=== PATIENT | female | born 1995 | race Caucasian/White ===

== ENCOUNTER 2017-10-26 02:21 | Emergency (ER) | END 2017-10-26 05:47 | disposition home or self-care (01) ==

== ENCOUNTER 2019-02-21 13:11 | Inpatient (IN) | payer OTHER ==
[~2019-02-21] VITALS: Ht 162.6 cm; Wt 63.0 kg
[2019-02-21] MEDS ORDERED: SOD CHLORIDE 0.9% 500 ML IV STA (13:50)
[2019-02-21] MEDS ORDERED: ONDANSETRON 4 MG INJ IV STA (13:50)
[2019-02-21] MEDS ORDERED: morphine 4 MG/ML VIAL IV STA (13:50)
--- NOTE | 2019-02-21 16:17 | ERD ---
ER Documentation Chief Complaint Chief Complaint RLQ ABD PAIN SINCE YESTERDAY GETTING WORSE TODAY. N/V NO DIARRHEA HPI 23-year-old female patient with no significant past medical history presents to ED complaining of right lower quadrant abdominal pain that started yesterday at 8 PM. Describes the pain as sharp and rates it an 8 out of 10. States that she has had a few episodes of nonbilious nonbloody vomiting. Reports that she has normal daily bowel movements. States that this feels different from her menstrual cramps. Denies any pain, shortness of breath, wheezing, diarrhea, dysuria, urgency, frequency. ROS All systems reviewed and are negative except as per history of present illness. Allergies Allergies: Coded Allergies: No Known Drug Allergies (Verified Allergy, Unknown, 02/21/19) PMhx/Soc History of Surgery: No Hx Neurological Disorder: No Hx Respiratory Disorders: No Hx Cardiac Disorders: No Hx Psychiatric Problems: No Hx Miscellaneous Medical Probl: Yes (Abdominal pain) Hx Alcohol Use: Yes (OCCASIONAL WINE, LIQUOR) Hx Substance Use: No Hx Tobacco Use: No FmHx Family History: No diabetes, No coronary disease Physical Exam Vitals Vital Signs Date Temp Pulse Resp B/P (MAP) Pulse Ox O2 O2 Flow FiO2 Time Delivery Rate 02/21/19 98.9 73 18 101/59 99 13:18 (73) Physical Exam Const: [id number], well-nourished. In no acute distress. Head: Atraumatic, normocephalic Eyes: Normal Conjunctiva without injection. No purulent discharge. ENT: Normal external ear, nose. Moist oropharynx without tonsillar exudates. Non-erythematous pharynx. Uvula midline. No drooling. No trismus. Neck: No cervical midline tenderness. Full range of motion. No meningismus. No cervical lymphadenopathy. No JVD. Resp: Clear to auscultation bilaterally. No wheezing, rhonchi, rales, or crackles. No accessory muscle use. No retractions. Cardio: Regular rate and rhythm. No murmurs, rubs or gallops. Abd: Soft, right lower quadrant tenderness, non distended. Normal bowel sounds. No palpable masses. Rebound tenderness. No guarding. Positive McBurney's point. Negative psoas sign. Negative obturator sign. Skin: No petechiae or rashes Back: No midline tenderness. No CVA tenderness. Ext: No cyanosis, or edema. Neur: Awake and alert. Normal gait. Normal coordination. Psych: Normal Mood and Affect Result Diagram: 02/21/19 1411 02/21/19 1411 Results 24 hrs Laboratory Tests Test 02/21/19 14:11 White Blood Count 8.8 10^3/ul Red Blood Count 4.21 10^6/ul Hemoglobin 13.1 g/dl Hematocrit 38.9 % Mean Corpuscular Volume 92.4 fl Mean Corpuscular Hemoglobin 31.1 pg Mean Corpuscular Hemoglobin Concent 33.7 g/dl Red Cell Distribution Width 12.3 % Platelet Count 211 10^3/UL Mean Platelet Volume 10.1 fl Immature Granulocytes % 0.300 % Neutrophils % 66.7 % Lymphocytes % 20.3 % Monocytes % 11.9 % Eosinophils % 0.6 % Basophils % 0.2 % Nucleated Red Blood Cells % 0.0 /100WBC Immature Granulocytes # 0.030 10^3/ul Neutrophils # 5.9 10^3/ul Lymphocytes # 1.8 10^3/ul Monocytes # 1.0 10^3/ul Eosinophils # 0.1 10^3/ul Basophils # 0.0 10^3/ul Nucleated Red Blood Cells # 0.0 10^3/ul Urine Color [place] Urine Clarity SLIGHTLY CLOUDY Urine pH 9.0 Urine Specific [place] 1.026 Urine Ketones NEGATIVE mg/dL Urine Nitrite NEGATIVE mg/dL Urine Bilirubin NEGATIVE mg/dL Urine Urobilinogen NEGATIVE mg/dL Urine Leukocyte Esterase TRACE [place]/ul Urine Microscopic RBC 82 /HPF Urine Microscopic WBC 24 /HPF Urine Squamous Epithelial Cells FEW /HPF Urine Bacteria FEW /HPF Urine Mucus MODERATE /HPF Urine Hemoglobin 2+ mg/dL Urine Glucose NEGATIVE mg/dL Urine Total Protein 2+ mg/dl Sodium Level 140 mmol/L Potassium Level 3.6 mmol/L Chloride Level 104 mmol/L Carbon Dioxide Level 28 mmol/L Anion Gap 8 Blood Urea Nitrogen 10 mg/dl Creatinine 0.57 mg/dl Est Glomerular Filtrat Rate mL/min > 60 mL/min Glucose Level 83 mg/dl Calcium Level 9.2 mg/dl Total Bilirubin 0.9 mg/dl Direct Bilirubin 0.00 mg/dl Indirect Bilirubin 0.9 mg/dl Aspartate Amino Transf (AST/SGOT) 31 IU/L Alanine Aminotransferase (ALT/SGPT) 25 IU/L Alkaline Phosphatase 73 IU/L Total Protein 7.0 g/dl Albumin 4.2 g/dl Globulin 2.80 g/dl Albumin/Globulin Ratio 1.50 Lipase 39 U/L Serum HCG, Qualitative NEGATIVE Current Medications Medications Dose Sig/Leanne Start Time Status Last (Trade) Ordered Route PRN Stop Time Admin Dose Reason Admin Sodium 500 ml @ Q1H STAT 02/21/19 DC 02/21/19 Chloride 500 mls/hr IV 13:50 14:26 02/21/19 14:49 Morphine 4 mg ONCE STAT 02/21/19 DC 02/21/19 Sulfate IV 13:50 14:26 (morphine) 02/21/19 13:52 Ondansetron 4 mg ONCE STAT 02/21/19 DC 02/21/19 HCl (Zofran IV 13:50 14:26 Inj) 02/21/19 13:52 Piperacillin 100 ml @ ONCE STAT 02/21/19 02/21/19 Sod/ 200 mls/hr IVPB 17:30 17:42 Tazobactam 02/21/19 17:59 Sod Procedures/MDM 23-year-old female patient with no significant past medical history presents ED complaining of right lower quadrant abdominal pain since yesterday. Patient is afebrile and nontoxic-appearing. Patient is in distress due to her right lower quadrant pain. Patient was further worked up with CBC, CMP, lipase, UA, HCG , CT of the abdomen and pelvis without contrast. Patient's pain and symptoms have improved after treatment with 4 mg IV morphine, 4 mg IV Zofran, 500 mL of normal saline. CBC: No leukocytosis. No e/o of systemic infection. No e/o anemia. CMP: No e/o severe acidosis, alkalosis, renal failure, diabetic ketoacidosis, liver disease Lipase within normal limits. Urine: Trace leukocyte esterase, no nitrites, 2+.. Patient reports that she just started her menstruation. Pending hCG . Pending CT of the abdomen and pelvis without contrast, this has been signed out to my supervising physician, Dr. Chip vizcaino for patient. Please note that this patient has been seen and evaluated by the nurse practitioner. I went to the bedside to evaluate the patient. The patient had significant tenderness in the right lower quadrant, with voluntary guarding specifically over McBurney's point. The patient was very pleasant but had artery received analgesic medication and stated her pain was still 8 out of 10 in intensity. Her last oral intake was over 24 hours prior to arrival. I evaluated the CT scan which indicated patient had appendicitis. She was given IV Zosyn. I have spoken with the surgeon Dr. Andrew who kindly stated he will evaluate the patient. The patient will be admitted to the panel physician will go to the medical surgical floor in serious condition. Departure Diagnosis: Primary Impression: Appendicitis Appendicitis type: acute appendicitis Acute appendicitis type: unspecified acute appendicitis type Qualified Codes: K35.80 - Unspecified acute appendicitis Condition: Serious CHARLES PATHAK PA-C Feb 21, 2019 16:14 LATHA MUNIZ MD Feb 21, 2019 17:46
[2019-02-21] MEDS ORDERED: PIPER-TAZO 3.375 GM IV (PMX) 100 ML IVPB STA (17:30)
[2019-02-21] MEDS ORDERED: ONDANSETRON 4 MG INJ IV PRN ×2 (18:30→19:00)
--- NOTE | 2019-02-21 18:59 | HP ---
Date/Time of Note Date/Time of Note DATE: 02/21/19 TIME: 18:57 Assessment/Plan VTE Prophylaxis Pharmacological prophylaxis: NA/contraindicated Pharm contraindication: low risk/ambulating Lines/Catheters IV Catheter Type (from Nrsg): Saline Lock Assessment/Plan Hospital Course 1. Acute appendicitis Surgery consultation with Dr. Andrew obtained Zosyn IV Pain control 2. UTI Zosyn Prophylaxis: Ambulation Result Diagram: 02/21/19 1411 02/21/19 1411 Results 24hrs Laboratory Tests Test 02/21/19 14:11 White Blood Count 8.8 Red Blood Count 4.21 Hemoglobin 13.1 Hematocrit 38.9 Mean Corpuscular Volume 92.4 Mean Corpuscular Hemoglobin 31.1 Mean Corpuscular Hemoglobin Concent 33.7 Red Cell Distribution Width 12.3 Platelet Count 211 Mean Platelet Volume 10.1 Immature Granulocytes % 0.300 Neutrophils % 66.7 Lymphocytes % 20.3 Monocytes % 11.9 H Eosinophils % 0.6 Basophils % 0.2 Nucleated Red Blood Cells % 0.0 Immature Granulocytes # 0.030 Neutrophils # 5.9 Lymphocytes # 1.8 Monocytes # 1.0 H Eosinophils # 0.1 Basophils # 0.0 Nucleated Red Blood Cells # 0.0 Urine Color [place] Urine Clarity SLIGHTLY CLOUDY A Urine pH 9.0 Urine Specific [place] 1.026 Urine Ketones NEGATIVE Urine Nitrite NEGATIVE Urine Bilirubin NEGATIVE Urine Urobilinogen NEGATIVE Urine Leukocyte Esterase TRACE A Urine Microscopic RBC 82 H Urine Microscopic WBC 24 H Urine Squamous Epithelial Cells FEW Urine Bacteria FEW A Urine Mucus MODERATE Urine Hemoglobin 2+ H Urine Glucose NEGATIVE Urine Total Protein 2+ H Sodium Level 140 Potassium Level 3.6 Chloride Level 104 Carbon Dioxide Level 28 Anion Gap 8 Blood Urea Nitrogen 10 Creatinine 0.57 Est Glomerular Filtrat Rate mL/min > 60 Glucose Level 83 Calcium Level 9.2 Total Bilirubin 0.9 Direct Bilirubin 0.00 Indirect Bilirubin 0.9 Aspartate Amino Transf (AST/SGOT) 31 Alanine Aminotransferase (ALT/SGPT) 25 Alkaline Phosphatase 73 Total Protein 7.0 Albumin 4.2 Globulin 2.80 Albumin/Globulin Ratio 1.50 Lipase 39 Serum HCG, Qualitative NEGATIVE HPI/ROS Admit Date/Time Admit Date/Time February 21, 2019 Hx of Present Illness Patient is a 23-year-old female with no medical history presents with right lower quadrant abdominal pain that began last night. Pain was associated with nausea vomiting, pain persisted into this morning hence presented to the ER where CT abdomen showed early appendicitis. Patient denies any fever chills or any prior such symptoms. Patient has no other complaints this time. Of note pain has remained in the right lower quadrant today. ROS Constitutional: no complaints, improved Eyes: no complaints ENT: no complaints Respiratory: no complaints Cardiovascular: no complaints Gastrointestinal: pain, nausea, vomiting Genitourinary: no complaints Musculoskeletal: no complaints Skin: no complaints Neurologic: no complaints Endocrine: no complaints Lymphatic: no complaints Psychological: no complaints, nl mood/affect Immunologic: no complaints PMH/Family/Social Past Medical History Medical History: no pertinent history Medications Current Medications Ondansetron HCl (Zofran Inj) 4 mg BRIDGE ORDER PRN IV NAUSEA/VOMITING; Start 02/21/19 at 18:30; Stop 02/22/19 at 18:29 Coded Allergies: No Known Drug Allergies (Verified Allergy, Unknown, 02/21/19) Past Surgical History Past Surgical Hx: no surgical history Family History Significant Family History: no pertinent family hx Social History Alcohol Use: rarely Smoking Status: Never smoker Drug Use: none Exam/Review of Systems Vital Signs Vitals Vital Signs Date Temp Pulse Resp B/P (MAP) Pulse Ox O2 O2 Flow FiO2 Time Delivery Rate 02/21/19 98.1 68 18 108/62 99 17:54 (77) Exam Constitutional: alert, oriented Respiratory: clear to auscultation Cardiovascular: regular rate and rhythm Gastrointestinal: soft, tender Musculoskeletal: nl extremities to inspection MELY CHERRY Feb 21, 2019 18:59
[2019-02-21] MEDS ORDERED: DOCUSATE SODIUM 100 MG CAP PO PRN (19:00)
[2019-02-21] MEDS ORDERED: HYDROCODONE/APAP (5/325) TAB PO PRN (19:00)
[2019-02-21] MEDS ORDERED: ZOLPIDEM 5 MG TAB PO PRN (19:00)
[2019-02-21] MEDS ORDERED: NACL 0.9% 3 ML SYG IV SCH (19:00)
[2019-02-21] MEDS ORDERED: ACETAMINOPHEN 325 MG TAB PO PRN (19:00)
[2019-02-21] MEDS: morphine 2 MG INJ IV PRN (20:20)
[2019-02-21 20:30] VITALS: Ht 162.6 cm; Wt 63.0 kg
[2019-02-21 20:50] VITALS: BP 103/64; PULSE 63; RESP 18
[2019-02-21] MEDS: NS + KCL 20 MEQ 1,000 ML IV SCH (21:24)
[2019-02-21] MEDS: PIPER-TAZO 3.375 GM IV (PMX) 100 ML IVPB SCH (23:57)
[2019-02-22] VITALS (30 sets, daily range): BP systolic 75–112; BP diastolic 48–69; PULSE 59–88; RESP 12–30
[2019-02-22] MEDS: PIPER-TAZO 3.375 GM IV (PMX) 100 ML IVPB SCH (05:14)
[2019-02-22] MEDS: NS + KCL 20 MEQ 1,000 ML IV SCH ×2 (06:00→12:56)
--- NOTE | 2019-02-22 09:37 | PREAC ---
Date/Time of Note Date/Time of Note DATE: 02/22/19 TIME: 09:33 Anesthesia Eval and Record Evaluation Time Pre-Procedure Interview DATE: 02/22/19 TIME: 09:33 Age 23 Sex female NPO: 8 hrs Preoperative diagnosis Acute Appendicitis Planned procedure Laparoscopic Appendectomy Past Medical History Past Medical History: Includes Heme: Anemia Surgery & Anesthesia Issues No known issue Meds Anticoagulation: No Beta Hailey within 24 hr: No Reason Beta Hailey not given: Pt. not on B-Hailey Current Medications Ondansetron HCl (Zofran Inj) 4 mg BRIDGE ORDER PRN IV NAUSEA/VOMITING; Start 02/21/19 at 18:30; Stop 02/22/19 at 18:29 Potassium Chloride/Sodium Chloride 1,000 ml @ 100 mls/hr Q10H IV Last administered on 02/21/19at 21:24; Admin Dose 100 MLS/HR; Start 02/21/19 at 20:00 IV Flush (NS 3 ml) 3 ml PER PROTOCOL IV ; Start 02/21/19 at 19:00 Ondansetron HCl (Zofran Inj) 4 mg Q6H PRN IV NAUSEA/VOMITING; Start 02/21/19 at 19:00 Acetaminophen (Tylenol Tab) 650 mg Q6H PRN PO .PAIN 1-3 OR TEMP; Start 02/21/19 at 19:00 Acetaminophen/ Hydrocodone Bitart ([place] (5/325)) 1 tab Q6H PRN PO .MOD PAIN 4- 6; Start 02/21/19 at 19:00 Morphine Sulfate (morphine) 2 mg Q4H PRN IV .SEVERE PAIN 7-10 Last administered on 02/21/19at 20:20; Admin Dose 2 MG; Start 02/21/19 at 19:00 Docusate Sodium (Colace) 100 mg Q12H PRN PO .CONSTIPATION; Start 02/21/19 at 19:00 Zolpidem Tartrate (Ambien) 5 mg QHS PRN PO .INSOMNIA; Start 02/21/19 at 19:00 Piperacillin Sod/ Tazobactam Sod 100 ml @ 200 mls/hr Q6 IVPB Last administered on 02/22/19at 05:14; Admin Dose 200 MLS/HR; Start 02/22/19 at 00:00 Meds reviewed: Yes Allergies Coded Allergies: No Known Drug Allergies (Verified Allergy, Unknown, 02/21/19) Allergies Reviewed: Yes Labs/Studies Labs Reviewed: Reviewed by anesthesiologist Result Diagram: 02/22/19 0450 02/22/19 0450 Laboratory Tests 02/22/19 04:50 test: Negative Studies: ECG (n/a), CXR (n/a) Pre-procedure Exam Last vitals Vital Signs Date Temp Pulse Resp B/P (MAP) Pulse Ox O2 O2 Flow FiO2 Time Delivery Rate 02/22/19 98.0 59 20 98/56 (70) 95 07:44 02/22/19 Room Air 02:00 Airway: Adequate mouth opening, Adequate thyromental dist Mallampati: Mallampati II Teeth: Normal Lung: Normal Heart: Normal ASA Physical Status ASA physical status: 1 Emergency: E Planned Anesthetic General/MAC: ETT Nerve block: TAP (bilateral) Planned Pain Management Single shot nerve block, Parenteral pain med Pre-operative Attestations Prior to commencing anesthesia and surgery, the patient was re-evaluated, there was verification of: *The patient's identity *The results of appropriate recent lab work and preoperative vital signs *The above evaluation not changing prior to induction *Anesthetic plan, risk benefits, alternative and complications discussed with patient/family; questions answered; patient/family understands, accepts and wishes to proceed. JOANNA BARTHOLOMEW MD Feb 22, 2019 09:37
[2019-02-22] MEDS ORDERED: ROCURONIUM 50 MG INJ ONE (09:43)
[2019-02-22] MEDS ORDERED: CEFAZOLIN 1 GM INJ ONE (09:43)
[2019-02-22] MEDS ORDERED: PROPOFOL 20 ML ONE (09:43)
[2019-02-22] MEDS ORDERED: ROPIVACAINE 0.2% 20 ML VIAL ONE (09:43)
[2019-02-22] MEDS ORDERED: FENTAnyl 50 MCG/ML VIAL ONE (09:43)
[2019-02-22] MEDS ORDERED: MIDAZOLAM 1 MG/ML 2 ML INJ ONE (09:43)
[2019-02-22] MEDS ORDERED: BUPIVACAINE 0.25%/EPI (SDV) 30 ML INJ ONE (09:52)
--- NOTE | 2019-02-22 09:58 | CONS ---
Assessment/Plan Assessment/Plan Assessment/Plan (Daily) Acute appendicitis Plan: Laparoscopic appendectomy possible open, I have discussed the procedure, indications, alternatives and risks in detail with the patient and family who have an excellent understanding of the nature of her situation and agreed to the proposed plan of therapy as outlined. Consultation Date/Type/Reason Admit Date/Time February 21, 2019 Date of Consultation: Feb 22, 2019 Type of Consult General surgery Reason for Consultation Acute appendicitis Date/Time of Note DATE: 02/22/19 TIME: 09:55 Hx of Present Illness The patient is an otherwise healthy 23-year-old female who presents with a 1 day history of nonspecific abdominal pain which has intensified in severity than localized to the right lower quadrant. In the emergency room she was noted to have a tender right lower quadrant, and a CT compatible with early appendicitis. The patient was admitted and surgical consultation was requested in that regard. Review of systems: Head ears eyes nose throat: Unremarkable Pulmonary: No history of asthma, pneumonia or shortness of breath Cardiac: No history of chest pain, or arrhythmia Abdomen: As in the HPI : No history Past Medical History Medical History: no pertinent history Medications Current Medications Ondansetron HCl (Zofran Inj) 4 mg BRIDGE ORDER PRN IV NAUSEA/VOMITING; Start 02/21/19 at 18:30; Stop 02/22/19 at 18:29 Potassium Chloride/Sodium Chloride 1,000 ml @ 100 mls/hr Q10H IV Last administered on 02/21/19at 21:24; Admin Dose 100 MLS/HR; Start 02/21/19 at 20:00 IV Flush (NS 3 ml) 3 ml PER PROTOCOL IV ; Start 02/21/19 at 19:00 Ondansetron HCl (Zofran Inj) 4 mg Q6H PRN IV NAUSEA/VOMITING; Start 02/21/19 at 19:00 Acetaminophen (Tylenol Tab) 650 mg Q6H PRN PO .PAIN 1-3 OR TEMP; Start 02/21/19 at 19:00 Acetaminophen/ Hydrocodone Bitart ([place] (5/325)) 1 tab Q6H PRN PO .MOD PAIN 4- 6; Start 02/21/19 at 19:00 Morphine Sulfate (morphine) 2 mg Q4H PRN IV .SEVERE PAIN 7-10 Last administered on 02/21/19at 20:20; Admin Dose 2 MG; Start 02/21/19 at 19:00 Docusate Sodium (Colace) 100 mg Q12H PRN PO .CONSTIPATION; Start 02/21/19 at 19:00 Zolpidem Tartrate (Ambien) 5 mg QHS PRN PO .INSOMNIA; Start 02/21/19 at 19:00 Piperacillin Sod/ Tazobactam Sod 100 ml @ 200 mls/hr Q6 IVPB Last administered on 02/22/19at 05:14; Admin Dose 200 MLS/HR; Start 02/22/19 at 00:00 Hydromorphone HCl (Dilaudid) 0.2 mg PACU PRN IV MILD PAIN 1-3; Start 02/22/19 at 10:00; Stop 02/22/19 at 15:00 Hydromorphone HCl (Dilaudid) 0.4 mg PACU PRN IV MOD PAIN 4-6; Start 02/22/19 at 10:00; Stop 02/22/19 at 15:00 Hydromorphone HCl (Dilaudid) 0.6 mg PACU PRN IV SEVERE PAIN 7-10; Start 02/22/19 at 10:00; Stop 02/22/19 at 15:00 Fentanyl (Sublimaze) 25 mcg PACU ORDER PRN IV MILD PAIN 1-3; Start 02/22/19 at 10:00; Stop 02/22/19 at 15:00 Fentanyl (Sublimaze) 50 mcg PACU ORDER PRN IV MOD PAIN 4-6; Start 02/22/19 at 10:00; Stop 02/22/19 at 15:00 Fentanyl (Sublimaze) 75 mcg PACU ORDER PRN IV SEVERE PAIN 7-10; Start 02/22/19 at 10:00; Stop 02/22/19 at 15:00 Ondansetron HCl (Zofran Inj) 4 mg PACU ORDER PRN IV NAUSEA/VOMITING; Start 02/22/19 at 10:00; Stop 02/22/19 at 15:00 Metoclopramide HCl (Reglan) 10 mg PACU ORDER PRN IV NAUSEA/VOMITING; Start 02/22/19 at 10:00; Stop 02/22/19 at 15:00 Ephedrine Sulfate 5 mg PACU ORDER PRN IV BLOOD PRESSURE SUPPORT; Start 02/22/19 at 10:00; Stop 02/22/19 at 15:00 Meperidine HCl (Demerol) 25 mg PACU ORDER PRN IV .RIGORS; Start 02/22/19 at 10:00; Stop 02/22/19 at 15:00 Allergies: Coded Allergies: No Known Drug Allergies (Verified Allergy, Unknown, 02/21/19) Past Surgical History Past Surgical Hx: no surgical history Family History Significant Family History: no pertinent family hx Social History Alcohol Use: rarely Smoking Status: Never smoker Drug Use: none Exam/Review of Systems Exam Vitals Vital Signs Date Temp Pulse Resp B/P (MAP) Pulse Ox O2 O2 Flow FiO2 Time Delivery Rate 02/22/19 98.0 59 20 98/56 (70) 95 07:44 02/22/19 Room Air 02:00 Intake and Output 02/21/19 02/21/19 02/22/19 1515:00 23:00 07:00 IntakeIntake Total 840 ml 900 ml BalanceBalance 840 ml 900 ml Constitutional: alert, oriented Psych: no complaints Head: normocephalic Eyes: nl conjunctiva ENMT: nl external ears & nose Neck: supple Respiratory: clear to auscultation Gastrointestinal: tender (Right lower quadrant with slight guarding but no rebound) Musculoskeletal: nl extremities to inspection Extremities: normal pulses Neurological: [employer] II-XII intact Skin: nl turgor Results Result Diagram: 02/22/19 0450 02/22/19 0450 Results 24hrs Laboratory Tests Test 02/21/19 14:11 02/22/19 04:50 White Blood Count 8.8 6.1 # Red Blood Count 4.21 3.82 L Hemoglobin 13.1 12.0 Hematocrit 38.9 36.0 L Mean Corpuscular Volume 92.4 94.2 Mean Corpuscular Hemoglobin 31.1 31.4 Mean Corpuscular Hemoglobin Concent 33.7 33.3 Red Cell Distribution Width 12.3 12.3 Platelet Count 211 198 Mean Platelet Volume 10.1 10.8 H Immature Granulocytes % 0.300 0.300 Neutrophils % 66.7 49.3 Lymphocytes % 20.3 34.4 Monocytes % 11.9 H 14.5 H Eosinophils % 0.6 1.2 Basophils % 0.2 0.3 Nucleated Red Blood Cells % 0.0 0.0 Immature Granulocytes # 0.030 0.020 Neutrophils # 5.9 3.0 Lymphocytes # 1.8 2.1 Monocytes # 1.0 H 0.9 Eosinophils # 0.1 0.1 Basophils # 0.0 0.0 Nucleated Red Blood Cells # 0.0 0.0 Urine Color [place] Urine Clarity SLIGHTLY CLOUDY A Urine pH 9.0 Urine Specific [place] 1.026 Urine Ketones NEGATIVE Urine Nitrite NEGATIVE Urine Bilirubin NEGATIVE Urine Urobilinogen NEGATIVE Urine Leukocyte Esterase TRACE A Urine Microscopic RBC 82 H Urine Microscopic WBC 24 H Urine Squamous Epithelial Cells FEW Urine Bacteria FEW A Urine Mucus MODERATE Urine Hemoglobin 2+ H Urine Glucose NEGATIVE Urine Total Protein 2+ H Sodium Level 140 143 Potassium Level 3.6 4.1 Chloride Level 104 110 Carbon Dioxide Level 28 27 Anion Gap 8 6 Blood Urea Nitrogen 10 8 Creatinine 0.57 0.68 Est Glomerular Filtrat Rate mL/min > 60 > 60 Glucose Level 83 80 Calcium Level 9.2 8.5 Total Bilirubin 0.9 Direct Bilirubin 0.00 Indirect Bilirubin 0.9 Aspartate Amino Transf (AST/SGOT) 31 Alanine Aminotransferase (ALT/SGPT) 25 Alkaline Phosphatase 73 Total Protein 7.0 Albumin 4.2 Globulin 2.80 Albumin/Globulin Ratio 1.50 Lipase 39 Serum HCG, Qualitative NEGATIVE Phosphorus Level 4.4 Magnesium Level 2.2 Medications Medication Current Medications Ondansetron HCl (Zofran Inj) 4 mg BRIDGE ORDER PRN IV NAUSEA/VOMITING; Start 02/21/19 at 18:30; Stop 02/22/19 at 18:29 Potassium Chloride/Sodium Chloride 1,000 ml @ 100 mls/hr Q10H IV Last administered on 02/21/19at 21:24; Admin Dose 100 MLS/HR; Start 02/21/19 at 20:00 IV Flush (NS 3 ml) 3 ml PER PROTOCOL IV ; Start 02/21/19 at 19:00 Ondansetron HCl (Zofran Inj) 4 mg Q6H PRN IV NAUSEA/VOMITING; Start 02/21/19 at 19:00 Acetaminophen (Tylenol Tab) 650 mg Q6H PRN PO .PAIN 1-3 OR TEMP; Start 02/21/19 at 19:00 Acetaminophen/ Hydrocodone Bitart ([place] (5/325)) 1 tab Q6H PRN PO .MOD PAIN 4- 6; Start 02/21/19 at 19:00 Morphine Sulfate (morphine) 2 mg Q4H PRN IV .SEVERE PAIN 7-10 Last administered on 02/21/19at 20:20; Admin Dose 2 MG; Start 02/21/19 at 19:00 Docusate Sodium (Colace) 100 mg Q12H PRN PO .CONSTIPATION; Start 02/21/19 at 19:00 Zolpidem Tartrate (Ambien) 5 mg QHS PRN PO .INSOMNIA; Start 02/21/19 at 19:00 Piperacillin Sod/ Tazobactam Sod 100 ml @ 200 mls/hr Q6 IVPB Last administered on 02/22/19at 05:14; Admin Dose 200 MLS/HR; Start 02/22/19 at 00:00 Hydromorphone HCl (Dilaudid) 0.2 mg PACU PRN IV MILD PAIN 1-3; Start 02/22/19 at 10:00; Stop 02/22/19 at 15:00 Hydromorphone HCl (Dilaudid) 0.4 mg PACU PRN IV MOD PAIN 4-6; Start 02/22/19 at 10:00; Stop 02/22/19 at 15:00 Hydromorphone HCl (Dilaudid) 0.6 mg PACU PRN IV SEVERE PAIN 7-10; Start 02/22/19 at 10:00; Stop 02/22/19 at 15:00 Fentanyl (Sublimaze) 25 mcg PACU ORDER PRN IV MILD PAIN 1-3; Start 02/22/19 at 10:00; Stop 02/22/19 at 15:00 Fentanyl (Sublimaze) 50 mcg PACU ORDER PRN IV MOD PAIN 4-6; Start 02/22/19 at 10:00; Stop 02/22/19 at 15:00 Fentanyl (Sublimaze) 75 mcg PACU ORDER PRN IV SEVERE PAIN 7-10; Start 02/22/19 at 10:00; Stop 02/22/19 at 15:00 Ondansetron HCl (Zofran Inj) 4 mg PACU ORDER PRN IV NAUSEA/VOMITING; Start 02/22/19 at 10:00; Stop 02/22/19 at 15:00 Metoclopramide HCl (Reglan) 10 mg PACU ORDER PRN IV NAUSEA/VOMITING; Start 02/22/19 at 10:00; Stop 02/22/19 at 15:00 Ephedrine Sulfate 5 mg PACU ORDER PRN IV BLOOD PRESSURE SUPPORT; Start 02/22/19 at 10:00; Stop 02/22/19 at 15:00 Meperidine HCl (Demerol) 25 mg PACU ORDER PRN IV .RIGORS; Start 02/22/19 at 10:00; Stop 02/22/19 at 15:00 YOLETTE FIGUEROA MD Feb 22, 2019 09:58
[2019-02-22] MEDS ORDERED: MEPERIDINE 25 MG INJ IV PRN (10:00)
[2019-02-22] MEDS ORDERED: HYDROmorphONE 1 MG/5 ML IV SYRINGE IV PRN ×3 (10:00)
[2019-02-22] MEDS ORDERED: EPHEDrine SULFATE 50 MG/5 ML SYG IV PRN (10:00)
[2019-02-22] MEDS ORDERED: ONDANSETRON 4 MG INJ IV PRN ×2 (10:00→11:00)
[2019-02-22] MEDS ORDERED: METOCLOPRAMIDE 10 MG INJ IV PRN (10:00)
[2019-02-22] MEDS ORDERED: FENTAnyl 50 MCG/ML VIAL IV PRN ×3 (10:00)
[2019-02-22] MEDS ORDERED: DEXAMETHASONE 4 MG/ML 5 ML INJ ONE (10:40)
[2019-02-22] MEDS ORDERED: METOCLOPRAMIDE 10 MG INJ ONE (10:40)
[2019-02-22] MEDS ORDERED: KETOROLAC 30 MG INJ ONE (10:40)
[2019-02-22] MEDS ORDERED: ONDANSETRON 4 MG INJ ONE (10:40)
[2019-02-22] MEDS ORDERED: SUGAMMADEX SODIUM 200 MG/2 ML VIAL IV ONE (10:40)
--- NOTE | 2019-02-22 10:53 | OPR ---
Date/Time of Note Date/Time of Note DATE: 02/22/19 TIME: 10:49 Operative Report Procedure Date: Feb 22, 2019 Preoperative Diagnosis Acute appendicitis Postoperative Diagnosis Acute appendicitis without localized peritonitis Operation/Procedure Performed Laparoscopic appendectomy Surgeon Yolette Figueroa MD Steerer None Anesthesia Type: general Anesthesiologist: JOANNA BARTHOLOMEW MD Estimated Blood Loss: minimal Transfusion none Specimen Appendix Grafts/Implants none Tubes/Drains None Complications none Pt Condition Post Procedure: stable Disposition: PACU Indications Acute appendicitis Procedure Description After satisfactory general endotracheal anesthesia was achieved, the abdomen was prepped and draped in the usual fashion. The abdomen was insufflated with carbon dioxide through an umbilical Veress needle to 15 mmHg pressure. The Veress needle was removed and the umbilical incision extended to 5 mm through which a 5 mm trocar was placed. A 5 mm 0 degree lens was placed. Laparoscopy showed an acutely inflamed intraperitoneal appendix without localized peritonitis. Under direct visualization a 5 mm suprapubic trocar was placed as well as a 12 mm left lower quadrant trocar. The camera was placed into the suprapubic port and the appendix mobilized. A window was made in the mesoappendix through which a vascular stapler was placed across the base of the cecum, closed and fired, disconnecting the appendix from the cecum. A second firing of the vascular stapler across the mesoappendix, fully freed the appendix which was placed intact into an Endo Catch removed via the 12 mm port site. Hemostasis of both staple lines was total and irrigant returned clear. 2 fascial sutures of 0 Vicryl were placed at the 12 mm port site with the assistance of a hailey-close device. The abdomen was then desufflated and the trochars were removed. The fascial sutures were tied down. 10 cc of 0.25% Marcaine with epinephrine were injected into the 12 mm port site for hemostasis. The skin punctures were then closed with sophie. Sponge and needle counts were reported as correct x2. YOLETTE FIGUEROA MD Feb 22, 2019 10:53
[2019-02-22] MEDS ORDERED: morphine 2 MG INJ IV PRN (11:00)
--- NOTE | 2019-02-22 11:01 | PAC ---
Date/Time of Note Date/Time of Note DATE: 02/22/19 TIME: 11:00 Post-Anesthesia Notes Post-Anesthesia Note Last documented vital signs Vital Signs Date Temp Pulse Resp B/P (MAP) Pulse Ox O2 O2 Flow FiO2 Time Delivery Rate 02/22/19 98.0 77 16 95/54 (67) 99 face mask 8 L 10:55 02/22/19 59 20 98/56 (70) 95 07:44 02/22/19 Room Air 02:00 Activity: WNL Respiratory function: WNL Cardiovascular function: WNL Mental status: Baseline Pain reasonably controlled: Yes Hydration appropriate: Yes Nausea/Vomiting absent: Yes JOANNA BARTHOLOMEW MD Feb 22, 2019 11:01
--- NOTE | 2019-02-22 12:19 | PN ---
Date/Time of Note Date/Time of Note DATE: 02/22/19 TIME: 12:17 Assessment/Plan VTE Prophylaxis Risk score (from Ns)>0 risk: 2 SCD applied (from Ns): Yes Pharmacological prophylaxis: NA/contraindicated Pharm contraindication: low risk/ambulating Lines/Catheters IV C[facility]ter Type [facility]from [facility] Peripheral IV Urinary Cath still in place: No Assessment/Plan Hospital Course 1. Acute appendicitis Status post laparoscopic appendectomy today with Dr. Andrew DC Zosyn Pain control 2. UTI DC Zosyn and start Rocephin Prophylaxis: Ambulation DC planning: Anticipate DC home tomorrow Result Diagram: 02/22/19 0450 02/22/19 0450 Results 24hrs Laboratory Tests Test 02/21/19 14:11 02/22/19 04:50 White Blood Count 8.8 6.1 # Red Blood Count 4.21 3.82 L Hemoglobin 13.1 12.0 Hematocrit 38.9 36.0 L Mean Corpuscular Volume 92.4 94.2 Mean Corpuscular Hemoglobin 31.1 31.4 Mean Corpuscular Hemoglobin Concent 33.7 33.3 Red Cell Distribution Width 12.3 12.3 Platelet Count 211 198 Mean Platelet Volume 10.1 10.8 H Immature Granulocytes % 0.300 0.300 Neutrophils % 66.7 49.3 Lymphocytes % 20.3 34.4 Monocytes % 11.9 H 14.5 H Eosinophils % 0.6 1.2 Basophils % 0.2 0.3 Nucleated Red Blood Cells % 0.0 0.0 Immature Granulocytes # 0.030 0.020 Neutrophils # 5.9 3.0 Lymphocytes # 1.8 2.1 Monocytes # 1.0 H 0.9 Eosinophils # 0.1 0.1 Basophils # 0.0 0.0 Nucleated Red Blood Cells # 0.0 0.0 Urine Color [place] Urine Clarity SLIGHTLY CLOUDY A Urine pH 9.0 Urine Specific [place] 1.026 Urine Ketones NEGATIVE Urine Nitrite NEGATIVE Urine Bilirubin NEGATIVE Urine Urobilinogen NEGATIVE Urine Leukocyte Esterase TRACE A Urine Microscopic RBC 82 H Urine Microscopic WBC 24 H Urine Squamous Epithelial Cells FEW Urine Bacteria FEW A Urine Mucus MODERATE Urine Hemoglobin 2+ H Urine Glucose NEGATIVE Urine Total Protein 2+ H Sodium Level 140 143 Potassium Level 3.6 4.1 Chloride Level 104 110 Carbon Dioxide Level 28 27 Anion Gap 8 6 Blood Urea Nitrogen 10 8 Creatinine 0.57 0.68 Est Glomerular Filtrat Rate mL/min > 60 > 60 Glucose Level 83 80 Calcium Level 9.2 8.5 Total Bilirubin 0.9 Direct Bilirubin 0.00 Indirect Bilirubin 0.9 Aspartate Amino Transf (AST/SGOT) 31 Alanine Aminotransferase (ALT/SGPT) 25 Alkaline Phosphatase 73 Total Protein 7.0 Albumin 4.2 Globulin 2.80 Albumin/Globulin Ratio 1.50 Lipase 39 Serum HCG, Qualitative NEGATIVE Phosphorus Level 4.4 Magnesium Level 2.2 Subjective 24 Hr Interval Summary Constitutional: no complaints Exam/Review of Systems Exam Vitals Vital Signs Date Temp Pulse Resp B/P (MAP) Pulse Ox O2 O2 Flow FiO2 Time Delivery Rate 02/22/19 60 18 95/51 (66) 92 Room Air 11:38 02/22/19 8.0 11:15 02/22/19 98.0 10:55 Intake and Output 02/21/19 02/21/19 02/22/19 1515:00 23:00 07:00 IntakeIntake Total 840 ml 900 ml BalanceBalance 840 ml 900 ml Constitutional: alert, oriented Respiratory: clear to auscultation Cardiovascular: regular rate and rhythm Gastrointestinal: soft; No distended Musculoskeletal: nl extremities to inspection Results Results 24hrs Laboratory Tests Test 02/21/19 14:11 02/22/19 04:50 White Blood Count 8.8 6.1 # Red Blood Count 4.21 3.82 L Hemoglobin 13.1 12.0 Hematocrit 38.9 36.0 L Mean Corpuscular Volume 92.4 94.2 Mean Corpuscular Hemoglobin 31.1 31.4 Mean Corpuscular Hemoglobin Concent 33.7 33.3 Red Cell Distribution Width 12.3 12.3 Platelet Count 211 198 Mean Platelet Volume 10.1 10.8 H Immature Granulocytes % 0.300 0.300 Neutrophils % 66.7 49.3 Lymphocytes % 20.3 34.4 Monocytes % 11.9 H 14.5 H Eosinophils % 0.6 1.2 Basophils % 0.2 0.3 Nucleated Red Blood Cells % 0.0 0.0 Immature Granulocytes # 0.030 0.020 Neutrophils # 5.9 3.0 Lymphocytes # 1.8 2.1 Monocytes # 1.0 H 0.9 Eosinophils # 0.1 0.1 Basophils # 0.0 0.0 Nucleated Red Blood Cells # 0.0 0.0 Urine Color [place] Urine Clarity SLIGHTLY CLOUDY A Urine pH 9.0 Urine Specific [place] 1.026 Urine Ketones NEGATIVE Urine Nitrite NEGATIVE Urine Bilirubin NEGATIVE Urine Urobilinogen NEGATIVE Urine Leukocyte Esterase TRACE A Urine Microscopic RBC 82 H Urine Microscopic WBC 24 H Urine Squamous Epithelial Cells FEW Urine Bacteria FEW A Urine Mucus MODERATE Urine Hemoglobin 2+ H Urine Glucose NEGATIVE Urine Total Protein 2+ H Sodium Level 140 143 Potassium Level 3.6 4.1 Chloride Level 104 110 Carbon Dioxide Level 28 27 Anion Gap 8 6 Blood Urea Nitrogen 10 8 Creatinine 0.57 0.68 Est Glomerular Filtrat Rate mL/min > 60 > 60 Glucose Level 83 80 Calcium Level 9.2 8.5 Total Bilirubin 0.9 Direct Bilirubin 0.00 Indirect Bilirubin 0.9 Aspartate Amino Transf (AST/SGOT) 31 Alanine Aminotransferase (ALT/SGPT) 25 Alkaline Phosphatase 73 Total Protein 7.0 Albumin 4.2 Globulin 2.80 Albumin/Globulin Ratio 1.50 Lipase 39 Serum HCG, Qualitative NEGATIVE Phosphorus Level 4.4 Magnesium Level 2.2 Medications Medication Current Medications Potassium Chloride/Sodium Chloride 1,000 ml @ 100 mls/hr Q10H IV Last administ ered on 02/21/19at 21:24; Admin Dose 100 MLS/HR; Start 02/21/19 at 20:00 IV Flush (NS 3 ml) 3 ml PER PROTOCOL IV ; Start 02/21/19 at 19:00 Acetaminophen (Tylenol Tab) 650 mg Q6H PRN PO .PAIN 1-3 OR TEMP; Start 02/21/19 at 19:00 Morphine Sulfate (morphine) 2 mg Q4H PRN IV .SEVERE PAIN 7-10 Last administered on 02/21/19at 20:20; Admin Dose 2 MG; Start 02/21/19 at 19:00 Docusate Sodium (Colace) 100 mg Q12H PRN PO .CONSTIPATION; Start 02/21/19 at 19:00 Zolpidem Tartrate (Ambien) 5 mg QHS PRN PO .INSOMNIA; Start 02/21/19 at 19:00 Piperacillin Sod/ Tazobactam Sod 100 ml @ 200 mls/hr Q6 IVPB Last administered on 02/22/19at 05:14; Admin Dose 200 MLS/HR; Start 02/22/19 at 00:00 Hydromorphone HCl (Dilaudid) 0.2 mg PACU PRN IV MILD PAIN 1-3; Start 02/22/19 at 10:00; Stop 02/22/19 at 15:00 Hydromorphone HCl (Dilaudid) 0.4 mg PACU PRN IV MOD PAIN 4-6 Last administered on 02/22/19at 11:21; Admin Dose 0.4 MG; Start 02/22/19 at 10:00; Stop 02/22/19 at 15:00 Hydromorphone HCl (Dilaudid) 0.6 mg PACU PRN IV SEVERE PAIN 7-10; Start 02/22/19 at 10:00; Stop 02/22/19 at 15:00 Fentanyl (Sublimaze) 25 mcg PACU ORDER PRN IV MILD PAIN 1-3; Start 02/22/19 at 10:00; Stop 02/22/19 at 15:00 Fentanyl (Sublimaze) 50 mcg PACU ORDER PRN IV MOD PAIN 4-6; Start 02/22/19 at 10:00; Stop 02/22/19 at 15:00 Fentanyl (Sublimaze) 75 mcg PACU ORDER PRN IV SEVERE PAIN 7-10; Start 02/22/19 at 10:00; Stop 02/22/19 at 15:00 Ondansetron HCl (Zofran Inj) 4 mg PACU ORDER PRN IV NAUSEA/VOMITING Last administered on 02/22/19at 11:21; Admin Dose 4 MG; Start 02/22/19 at 10:00; Stop 02/22/19 at 15:00 Metoclopramide HCl (Reglan) 10 mg PACU ORDER PRN IV NAUSEA/VOMITING; Start 02/22/19 at 10:00; Stop 02/22/19 at 15:00 Ephedrine Sulfate 5 mg PACU ORDER PRN IV BLOOD PRESSURE SUPPORT; Start 02/22/19 at 10:00; Stop 02/22/19 at 15:00 Meperidine HCl (Demerol) 25 mg PACU ORDER PRN IV .RIGORS; Start 02/22/19 at 10:00; Stop 02/22/19 at 15:00 Oxycodone/ Acetaminophen (Percocet (5/ 325)) 1 tab Q4H PRN PO .MILD PAIN (1-3); Start 02/22/19 at 11:00 Oxycodone/ Acetaminophen (Percocet (5/ 325)) 2 tab Q4H PRN PO .MODERATE PAIN (4-6); Start 02/22/19 at 11:00 Ondansetron HCl (Zofran Inj) 4 mg Q6H PRN IV NAUSEA/VOMITING; Start 02/22/19 at 11:00 MELY CHERRY Feb 22, 2019 12:19
[2019-02-22] MEDS: CEFTRIAXONE 1 GM/50 ML (PMX) 50 ML IVPB SCH (12:56)
[2019-02-22] MEDS ORDERED: HYDR-4011 PO (13:13)
--- NOTE | 2019-02-22 13:15 | PDOCDIS ---
Discharge Instructions CONDITION [id number] Patient Condition: [id number] Good HOME CARE INSTRUCTIONS: [id number] Diet Instructions: [id number] Regular ACTIVITY: [id number] Activity Restrictions: [id number] Avoid heavy lifting (X4 weeks) FOLLOW UP/APPOINTMENTS Follow-up Plan Follow-up with your PCP in 1 to 2 weeks, follow-up with Dr. David Andrew in 1 to 2 weeks MELY CHERRY Feb 22, 2019 13:15
--- NOTE | 2019-02-22 13:18 | DS ---
Date/Time of Note Date/Time of Note DATE: 02/22/19 TIME: 13:15 Discharge Summary Admission/Discharge Info Admit Date/Time Feb 21, 2019 at 18:24 Discharge Date/Time February 22, 2019 Discharge Diagnosis 1. Acute appendicitis Status post laparoscopic appendectomy today with Dr. Kamran GUZMAN Zosyricardo Pain control Clear for DC per surgery 2. Asymptomatic UTI Status post antibiotic course Patient Condition: Good Hospital Course Patient is a 23-year-old female with no medical history presents with right lower quadrant abdominal pain, in the ER where CT abdomen showed early appendicitis. Patient was seen by surgery and underwent laparoscopic appendectomy and was stable for DC. Of note UA did suggest UTI but patient was a symptomatic, patient did receive Zosyn and Rocephin during the hospitalization. Was on the day of discharge patient's vitals, labs and phy sical exam are stable. Home Meds Active Scripts Hydrocodone/Acetaminophen ([place] 5-325 Tablet) 1 Each Tablet, 1 EACH PO Q4, #24 TAB Prov:MELY CHERRY 02/22/19 Follow-up Plan Follow-up with your PCP in 1 to 2 weeks, follow-up with Dr. David Andrew in 1 to 2 weeks Primary Care Provider Care Physician No Primary Time spent on discharge: > 30 minutes MELY CHERRY Feb 22, 2019 13:17
[2019-02-22] MEDS: OXYCODONE/ACETAMINOPHEN (5/325) TAB PO PRN ×2 (13:53→19:40)
[2019-02-22] MEDS: morphine 2 MG INJ IV PRN (22:36)
[2019-02-23] VITALS: BP 108/64; PULSE 62; RESP 20
[2019-02-23] MEDS: OXYCODONE/ACETAMINOPHEN (5/325) TAB PO PRN ×3 (00:38→12:39)
[2019-02-23] MEDS: NS + KCL 20 MEQ 1,000 ML IV SCH ×2 (02:00→12:00)
[2019-02-23 05:43] VITALS: BP 105/67; PULSE 61; RESP 18
[2019-02-23 08:01] VITALS: BP 117/64; PULSE 78; RESP 18
[2019-02-23] MEDS: CEFTRIAXONE 1 GM/50 ML (PMX) 50 ML IVPB SCH (12:10)
--- NOTE | 2019-02-23 12:55 | DS ---
Date/Time of Note Date/Time of Note DATE: 02/23/19 TIME: 12:53 Discharge Summary Admission/Discharge Info Admit Date/Time Feb 21, 2019 at 18:24 Discharge Date/Time February 23, 2019 Discharge Diagnosis 1. Acute appendicitis Status post laparoscopic appendectomy with Dr. Andrew Status post Zosyn Pain control Clear for DC per surgery 2. Asymptomatic UTI Status post antibiotic course Patient Condition: Good Hospital Course Patient is a 23-year-old female with no medical history presents with right lower quadrant abdominal pain, in the ER where CT abdomen showed early appendicitis. Patient was seen by surgery and underwent laparoscopic appendectomy and was stable for DC. Of note UA did suggest UTI but patient was a symptomatic, patient did receive Zosyn and Rocephin during the hospitalization and completed an antibiotic course. On the day of discharge patient's vitals, labs and physical exam are stable. Home Meds Active Scripts Hydrocodone/Acetaminophen ([place] 5-325 Tablet) 1 Each Tablet, 1 EACH PO Q4, #24 TAB Prov:MELY CHERRY 02/22/19 Follow-up Plan Follow-up with your PCP in 1 to 2 weeks, follow-up with Dr. David Andrew in 1 to 2 weeks Primary Care Provider Care Physician No Primary Time spent on discharge: > 30 minutes MELY CHERRY Feb 23, 2019 12:55
== END 2019-02-23 13:05 | disposition home or self-care (01) | DRG 342 ==
LOC: FTE 13:11 → MS1 18:24
PROVIDERS: ADMIT Internal Medicine; ATTEND Internal Medicine
PROC: 0DTJ4ZZ Resection of Appendix, Percutaneous Endoscopic Approach (ICD-10-PCS; principal; 2019-02-22 10:30)
DX: K35.80 Unspecified acute appendicitis (principal); N39.0 Urinary tract infection, site not specified
CPT/HCPCS: 36415; 74176; 80048; 80053; 81001; 83690; 83735; 84100; 84703; 85025; 88304; 96361; 96365; 96375; J0690; J0696; J1100; J1170; J1885; J2250; J2270; J2405; J2543; J2765; J2795; J3010; J3480; J7040